=== PATIENT | female | born 1975 | race Caucasian/White ===

== ENCOUNTER 2017-07-10 16:09 | Emergency (ER) | payer SELFPAY ==
[~2017-07-10] VITALS: Ht 165.1 cm; Wt 59.0 kg
[2017-07-10] MEDS ORDERED: IV NORMAL SALINE 1000 ML BAG IV ONE ×3 (16:45→20:45)
--- NOTE | 2017-07-10 17:00 | NUR ---
PER PARAMEDICS PT HAS GARCIA ON SCALP AND UPPER PART OF FACE. PT HAS C/D/I DRESSING WELL MASH OVER MOST OF THE SCALP. PT HAS STRONG SMELL OF WOMIT.
[2017-07-10 17:23] LABS: CARBON DIOXIDE 25 mmol/L (21-32); CHLORIDE 101 mmol/L (98-107); CREATININE 0.8 mg/dL (0.6-1.3); GLUCOSE 78 mg/dL (74-106); POTASSIUM 3.7 mmol/L (3.5-5.1); UREA NITROGEN, BLOOD 12 mg/dL (7-18)
[2017-07-10 17:24] LABS: BASOPHILS # (AUTO) 0.1 K/uL (0.0-8.0); BASOPHILS % (AUTO) 0.8 % (0.0-2.0); EOSINOPHILS % (AUTO) 0.1 % (0.0-7.0); HEMATOCRIT 40.9 % (31.2-41.9); HEMOGLOBIN 14.2 g/dL (10.9-14.3); LYMPHOCYTES # (AUTO) 1.8 K/uL (20.0-40.0); LYMPHOCYTES % (AUTO) 17.7 % (20.5-51.5); MEAN CORPUSCULAR HEMOGLOBIN 33.7 uug (24.7-32.8); MEAN CORPUSCULAR HGB CONC 35 g/dL (32.3-35.6); MEAN CORPUSCULAR VOLUME 97.5 fL (75.5-95.3); MONOCYTES # (AUTO) 0.2 K/uL (2.0-10.0); MONOCYTES % (AUTO) 2.4 % (0.0-11.0); PLATELET COUNT (AUTO) 661 K/uL (179-408); RED BLOOD CELL COUNT(AUTO) 4.19 MIL/uL (3.63-4.92); WHITE BLOOD COUNT (AUTO) 10.1 K/uL (3.8-11.8)
[2017-07-10 17:29] LABS: ALANINE AMINOTRANSFERASE 68 U/L (14-59); ALKALINE PHOSPHATASE 116 U/L (50-136); ASPARTATE AMINOTRANSFERASE 53 U/L (15-37); BILIRUBIN,DIRECT 0.1 mg/dL (0.0-0.2); BILIRUBIN,TOTAL 0.2 mg/dL (0.2-1.0); TOTAL PROTEIN, SERUM 8.2 g/dL (6.4-8.2)
[2017-07-10 17:34] LABS: ACETAMINOPHEN < 2.0 ug/mL (10-30)
[2017-07-10 17:36] LABS: THYROID STIMULATING HORMONE 1.134 mIU/mL (0.358-3.740)
[2017-07-10 17:37] LABS: ETHANOL 403 MG/DL (0-0)
[2017-07-10] MEDS ORDERED: LEVOFLOXACIN 750 MG/D5W 150 ML PIGGYBACK IV ONE (17:45)
--- NOTE | 2017-07-10 18:05 | NUR ---
PT OUT OF ER FOR CT.
[2017-07-10] MEDS ORDERED: LEVOFLOXACIN 750MG/D5W 150 ML IV ONE (18:25)
--- NOTE | 2017-07-10 18:28 | NUR ---
PT BACK FROM CT, BECOMING RESTLESS AT TIMES. WATER PROVIDED PER PT REQUEST, PT STATES BEING VERY VERY THIRSTY. ABLE TO TOLORATE FLUIDS, NO N/V.
[2017-07-11 00:12] LABS: *AMPHETAMINE, URINE POSITIVE (NEGATIVE); *BARBITURATE, URINE NEGATIVE (NEGATIVE); *CANNABINOID, URINE NEGATIVE (NEGATIVE); *COCCAINE, URINE NEGATIVE (NEGATIVE); *OPIATE, URINE POSITIVE (NEGATIVE); *PHENCYCLIDINE SCREEN,URINE NEGATIVE (NEGATIVE)
[2017-07-11] MEDS ORDERED: ONDANSETRON IV *ER 4 MG/2 ML VIAL IV ONE (00:45)
[2017-07-11] MEDS ORDERED: HYDROMORPHONE 1 MG/1 ML DISP.SYRIN IV ONE (00:45)
[2017-07-11] MEDS ORDERED: ONDANSETRON 4 MG/2 ML VIAL ONE (00:58)
[2017-07-11] MEDS ORDERED: HYDROMORPHONE 2 MG/1 ML DISP.SYRIN ONE (00:58)
[2017-07-11 01:46] LABS: *BILIRUBIN,URIN NEGATIVE (NEGATIVE); *BLOOD, URINE NEGATIVE (NEGATIVE); *CLARITY,URINE CLEAR (CLEAR); *COLOR,URINE YELLOW (YELLOW); *KETONES,URINE 2+ (NEGATIVE); *PROTEIN,URINE NEGATIVE (NEGATIVE); *UROBILINOGEN,URINE 0.2 E.U./dl (NORMAL); LEUKOCYTE ESTERASE ,URINE NEGATIVE (NEGATIVE); NITRITE, URINE NEGATIVE (NEGATIVE); PH,URINE 5.5 (5.0-8.0); UGLUCOSE NEGATIVE (NEGATIVE)
[2017-07-11 02:25] LABS: BACTERIA,URINE MODERATE /HPF (NONE SEEN); RBC,URINE 0-3 /HPF (0-3); SQUAMOUS EPITHELIAL CELL,UR MODERATE /HPF (NONE SEEN); URIC ACID CRYSTALS,URINE MANY /HPF (NONE SEEN); WBC,URINE 0-3 /HPF (0-3)
[2017-07-11] MEDS ORDERED: PARO40TA4 PO (06:20)
[2017-07-11] MEDS ORDERED: QUET50TA PO (06:20)
[2017-07-11] MEDS ORDERED: GABA600T2 PO (06:20)
[2017-07-11] MEDS ORDERED: GABAPENTIN 100 MG CAPSULE PO ONE (07:00)
[2017-07-11] MEDS: PAROXETINE HCL 20 MG TABLET PO SCH ×2 (07:07→16:20)
[2017-07-11] MEDS ORDERED: GABAPENTIN 300 MG CAPSULE ONE (07:13)
--- NOTE | 2017-07-11 08:00 | NUR ---
breakdfast tray at bedside,
--- NOTE | 2017-07-11 08:10 | NUR ---
ford sapp at bedside for psych eval.
[2017-07-11] MEDS ORDERED: LORAZEPAM 2 MG/1 ML VIAL IV ONE (08:15)
[2017-07-11] MEDS ORDERED: HALOPERIDOL LACTATE 5 MG/1 ML VIAL IV ONE (08:15)
--- NOTE | 2017-07-11 08:30 | NUR ---
pt becoming agitated and very uncomfprtable, asking for something to calm her, notified. comfort measure provided.
[2017-07-11] MEDS ORDERED: ALPRAZOLAM 0.25 MG TABLET PO ONE (08:45)
[2017-07-11] MEDS ORDERED: HALOPERIDOL LACTATE 5 MG/1 ML VIAL ONE (09:05)
[2017-07-11] MEDS ORDERED: ALPRAZOLAM 0.5 MG TABLET ONE (09:05)
[2017-07-11] MEDS ORDERED: LORAZEPAM 2 MG/1 ML VIAL ONE (09:06)
--- NOTE | 2017-07-11 11:00 | NUR ---
VAIBHAV FROM [facility] AT BEDSIDE.
--- NOTE | 2017-07-11 13:26 | NUR ---
LUNCH TRAY PROVIDED FOR PT
--- NOTE | 2017-07-11 14:14 | NUR ---
Per request from Director Mary Cabrera, this SW contacted [facility] [phone] and spoke with charge nurse Linda, requesting patient's medical records (patient was [facility] from the [facility] 2 days ago). Linda stated that patient's records could be obtained from medical records. SW then asked about discharge plans and any follow-up nursing care, and Linda stated that patient was referred to [facility] for follow-up care. SW to follow-up with the home health agency upon discharge. FELICIA then spoke with Rojelio in medical records and was instructed to fax over the request for medical records on an [facility] fax cover sheet. SW faxed request to [phone]. ER physician Dr. Lawton, FREIGHT TRAFFIC CONSULTANT Kevon, and Director Mary Cabrera informed of above.
--- NOTE | 2017-07-11 14:31 | NUR ---
PT AMBULATED TO BATHROOM WITH STEADY GAIT.
[2017-07-11] MEDS ORDERED: LORAZEPAM 0.5 MG TABLET PO ONE (16:00)
[2017-07-11] MEDS ORDERED: LORAZEPAM 1 MG TABLET ONE (16:30)
--- NOTE | 2017-07-11 16:39 | NUR ---
FELICIA spoke with Brittany at [facility] [place], x [address], and informed her of patient's current location. FELICIA asked if patient's appointment for today could be rescheduled for tomorrow, and Brittany stated that she will reschedule patient. Brittayn asked if patient would require a SS consult, and this SW stated she will discuss it with the ER physician and call Brittany back. Brittany agreed. FELICIA consulted with Dr. Lawton, who agreed, and provided this SW with an order. FELICIA called Brittany back but was unable to connect with her. FELICIA left Brittany a voicemail message, asking her to call this SW back in order to coordinate SS consultation order. FELICIA, along with YASH Sinclair, met with patient and informed her that the home health nurse would be visiting her at home tomorrow, and patient agreed. Patient presented drowsy, but was able to verbalize her desire to go home. She was also able to state her address. Patient was allowed additional time to sleep off the drowsiness to ensure safe discharge. This SW was informed by catalogue maker this AM that patient had reported not having a telephone at home, and possibly not having money for food, but when this SW asked patient the same questions, patient responded that money was not the issue, and that she can go downstairs to the apartment building's office and use their telephone to order take out. SW also provided patient with a list of food pantries and places where she could obtain sack lunches throughout the [facility]. A copy of this list was filed in patient's chart. When patient was ready to be discharged, this SW called a taxi for patient from [employer], . Taxi voucher was obtained from Lula, nursing mri supervisor, per authorization from Director Mary Cabrera. Taxi voucher was left with ER tank house operator helper and instructed to give to cdl b driver when they arrived. YASH Sinclair was informed of above. SS Director Mary was also informed of above.
--- NOTE | 2017-07-11 16:41 | NUR ---
I HERE TO TAKE THE PT HOME, ARRANGED BY AMANDA RECREATION MANAGER.
[2017-07-11] MEDS ORDERED: AMLO10TA2 PO (17:39)
[2017-07-11 18:15] VITALS: BP 103/69
--- NOTE | 2017-07-12 09:21 | NUR ---
This morning, FELICIA followed up with Brittany at [facility] [phone] x [phone]. FELICIA was able to connect with Brittany, who stated that patient will be seen today. FELICIA also faxed Brittany an order for a home health social work consult. Fax sent to [phone].
== END 2017-07-11 16:41 | disposition home or self-care (01) ==
LOC: ER 16:10
DX: F10.129 Alcohol abuse with intoxication, unspecified (principal); R41.82 Altered mental status, unspecified
CPT/HCPCS: 36415; 70450; 71045; 72125; 80307; 83605; 84443; 84703; 85025; 85730; 87040; 93005; A4663; G0480; G0480-TC; J1170; J1630; J1956; J2060; J2405; J7030